=== PATIENT | female | born 1995 | race Caucasian/White ===

== ENCOUNTER 2018-03-06 19:22 | Emergency (ER) | payer OTHER ==
[~2018-03-06] VITALS: Ht 165.1 cm; Wt 85.0 kg
[2018-03-06 19:28] VITALS: BP 129/81; TEMP 98.5
[2018-03-06] MEDS ORDERED: SEROQUEL 200MG200 MG PO (19:43)
[2018-03-06] MEDS ORDERED: MAXALT5 MG PO (19:44)
[2018-03-06] MEDS ORDERED: JUNEL FE 1.5/301 TAB PO (19:44)
[2018-03-06] MEDS ORDERED: ZITHROMAX Z PA250 MG PO (19:58)
[2018-03-06 20:19] VITALS: PULSE 90
== END 2018-03-06 20:19 | disposition home or self-care (01) ==
LOC: COL.ER 19:22
DX: J02.9 Acute pharyngitis, unspecified (principal); R05 Cough; F17.210 Nicotine dependence, cigarettes, uncomplicated; Z88.0 Allergy status to penicillin

== ENCOUNTER 2018-03-16 15:15 | Emergency (ER) | payer OTHER ==
[~2018-03-16] VITALS: Ht 165.1 cm; Wt 86.4 kg
[~2018-03-16 15:15] MED LIST: JUNEL FE 1.5/301 TAB PO; MAXALT5 MG PO; SEROQUEL 200MG200 MG PO; ZITHROMAX Z PA250 MG PO
[2018-03-16 15:18] VITALS: BP 136/77; PULSE 100; TEMP 98
== END 2018-03-16 16:58 | disposition home or self-care (01) ==
LOC: COL.ER 15:15
DX: N91.2 Amenorrhea, unspecified (principal); G43.909 Migraine, unspecified, not intractable, without status migrainosus; F17.210 Nicotine dependence, cigarettes, uncomplicated